=== PATIENT | female | born 1995 | race Caucasian/White ===

== ENCOUNTER 2019-10-20 09:17 | Inpatient (IN) | payer OTHER ==
[~2019-10-20] VITALS: Ht 152.4 cm; Wt 105.7 kg
[2019-10-20 10:31] VITALS: BP 110/68
--- NOTE | 2019-10-20 12:03 | NUR ---
Received consult for pt with gluten sensitivity, lactose intolerance. Pt is NPO on admit. Pt is aware of gluten free and dairy free menu options and reports good appetite.
--- NOTE | 2019-10-20 17:05 | NUR ---
FAXED REFERRAL TO [facility] RECEIVED CONFIRMATION SPOKE WITH JUAN IN INTAKE SHE NEEDS TO RUN INSURANCE AND WILL NOT KNOW IF THEY CAN ACCEPT. BUT TO SEND PT HOME WITH A STARTER DRESSING CHANGE SUPPLIES AND THEY WILL F/U WITH PT ONCE THEY KNOW IF INSURANCE IS IN NETWORK. IF PT DISCHARGES OVER WEEKEND FAX DC ORDERS/SUMMARY TO [phone] AND CALL [phone]. DP TO F/U WEDNESDAY AM
--- NOTE | 2019-10-20 17:11 | NUR ---
ASSESSMENT-PT LIVES IN A HOUSE BUT HER MOM LIVES ABOUT 1 MILE AWAY. PT WAS INDEPENDENT OF ADLS AND AMBULATION PRIOR TO ADMISSION. PT WAS WORKING AND DRIVING. DISCUSSED POSSIBLE NEED FOR HH SERVICES FOR DRESSING CHANGES. UNABLE TO CHECK BENEFITS FOR HH SERVICES AT THIS TIME. [facility] WILL REVIEW INFO & CHECK BENEFITS. PT/MOM WILL CHECK WITH TOMORROW TO SEE IF THEY REC. HH SERVICES FOR DRESSING CHANGES. RN INSTRUCTED TO DO TEACHING ON THE DRESSING CHANGE AND TO PROVIDE PT WITH A STARTER SUPPLY OF DRESSING SUPPLIES WHEN DISCHARGED. MOM AT BEDSIDE. FOLLOWING TO ASSIST WITH DC PLANNING.
[2019-10-20 19:15] VITALS: BP 99/61
[2019-10-20] MEDS ORDERED: ZYRTEC10 MG PO (20:47)
[2019-10-20] MEDS ORDERED: MUCINEX600 MG (20:48)
[2019-10-20] MEDS ORDERED: FLONASE 0.05%50 MCG NARES (20:49)
--- NOTE | 2019-10-21 02:11 | NUR ---
PT IS ALERT AND ORIENTED. PLEASANT AND COOPERATIVE. AFEBRILE. LEFT GROIN DRSG IS C/D. SCDS IN PLACE. PT HAS IV HYDRATION RUNNING. CONTINUES ON PRN WELL SCHEDULED PAIN MEDS WITH RELIEF. WILL CONTINUE WITH POC TILL EOS.
[2019-10-21 04:25] VITALS: BP 109/59
[2019-10-21 06:12] LABS: HEMATOCRIT 39.9 % (37.0-47.0); HEMOGLOBIN 13.2 gm/dL (12.0-15.0); MCH 30.2 pg (26.0-34.0); MCHC 33.1 g/dL (28.0-37.0); MCV 91.3 fL (80.0-100.0); RBC 4.36 mil/uL (4.20-5.00); RDW 12.7 % (10.5-14.5); WBC 10.9 thou/uL (4.0-11.0)
[2019-10-21 06:30] LABS: ALBUMIN 3.3 g/dL (3.4-5.0); CALCIUM 9.4 mg/dL (8.5-10.1); CREATININE 0.8 mg/dL (0.6-1.0); PHOSPHORUS 3.5 mg/dL (2.5-4.9); POTASSIUM 4.8 mmol/L (3.5-5.1)
[2019-10-21 08:20] VITALS: BP 112/73
[2019-10-21 17:06] VITALS: BP 114/51
[2019-10-21 21:30] VITALS: BP 110/67
[2019-10-22 04:00] VITALS: BP 96/58
--- NOTE | 2019-10-22 04:00 | NUR ---
ASSESSMENT COMPLETED. PT IS UP AD MAXIME IN ROOM. DRSG TO LEFT GROIN IS C/D/I. NO S/SX OF INFECTION AROUND THE GROIN SITE. AFEBRILE. REQUIRES IV PAIN MEDS FOR PAIN CONTROL.DENIES ANY NAUSEA OR VOMITING. PT CONCERNED ABOUT THE HIGH LEVEL OF PAIN SHE FEELS DURING DRSG CHANGE.EATING AND DRINKING OKAY.
[2019-10-22] MEDS ORDERED: OXYCODONE HCL 55 MG PO (06:12)
[2019-10-22 08:10] VITALS: BP 94/56
[2019-10-22 17:15] VITALS: BP 104/62
[2019-10-22 19:53] VITALS: BP 115/68
[2019-10-23 03:28] VITALS: BP 95/51
--- NOTE | 2019-10-23 04:21 | NUR ---
ASSUMED CARE OF PT @1900. PT ASSESSED AT START OF SHIFT WITH C/O OF UNCONTROLLABLE PAIN. PAIN MEDS GIVEN. DRESSING CHANGE ON LFT GROIN DONE THIS SHIFT BY NIGHT NURSE LIDOCAINE JELL APPLIED, PACKED AND OPTIFORM PLACED. PT WAS STILL IN SO MUCH PAIN. MOM AT BEDSIDE FOR THE NIGHT. PT WANTED XANAX FOR ANXIETY STATES TAKES AT HOME CALLED AND SPOKE WITH DR MARQUEZ. HE STATED TO ASK ABOUT PHARMACY. PT STATED DOESN'T HAVE MED. ISOLATION MAINTAINED. AND SCHEDULED PAIN MEDS GIVEN ROUND THE CLOCK. MOM AND PT WANTS TO TALK WITH AGRICULTURAL ENGINEERING TECHNICIAN TOMORROW FOR H/H SERVICES BEFORE D/C. WILL CONT WITH POC TILL EOS.
[2019-10-23 08:02] VITALS: BP 91/37
[2019-10-23] MEDS ORDERED: BACTRIM DS TAB1 EACH PO (14:07)
[2019-10-23] MEDS ORDERED: IBUPROFEN 200200 M1 PO (14:08)
[2019-10-23] MEDS ORDERED: ACETAMINOPHEN325 M1 PO (14:08)
[2019-10-23] MEDS ORDERED: COLACE 100 MG100 MG PO (14:09)
[2019-10-23] MEDS ORDERED: MIRALAX17 GM PO (14:09)
[2019-10-23] MEDS ORDERED: LIDOCAINE 2%2 %/5 GM TOP (14:39)
[2019-10-23 15:33] VITALS: BP 91/37
--- NOTE | 2019-10-23 15:34 | NUR ---
CARE TEAM INDICATED THAT PT IS MEDICALLY STABLE TO DC HOME THIS DAY WITH [facility] FOR WOUND CARE. PT NEEDS DAILY PACKING AND DRESSING CHANGES. CM MET WITH PT AND KEYLA AT BEDSIDE THIS DAY AND INDICATED THAT [facility] COULD DO DAILY TREATMENTS FOR A SHORT TIME BUT THAT THE EXPECTATION WOULD BE THAT THERE BE SOMEONE WHO IS TEACHABLE TO PROVIDE DRESSING CHANGES ONCE THEY AREN'T ABLE TO COME DAILY. PT TOLD DR. MARQUEZ THAT SHE HAS A FRIEND WHO WILL BE ABLE TO ASSIST. ORDERS FAXED. NO OTHER CM INTERVENTION INDICATED. CASE CLOSED.
[2019-10-23 17:35] VITALS: BP 112/60
--- NOTE | 2019-10-23 19:05 | NUR ---
ASSUMED CARE OF THE PT AT 0700. PT WOUND CHANGED WITH WET GAUZE AND BORDER FOAM. PAIN CONTROLLED BY PAIN MEDS, SEE EMAR. IV REMOVED AND PT DISCHARGED TO HOME WITH HH. DISCHARGE [facility]WK SIGNED AND PRESCRIPTIONS GIVEN TO PT
== END 2019-10-23 19:08 | disposition home or self-care (01) | DRG 603 ==
LOC: 4S 09:17
PROVIDERS: ADMIT Surgery
PROC: 0Y9D0ZZ Drainage of Left Upper Leg, Open Approach (ICD-10-PCS; principal; 2019-10-20)
DX: L02.416 Cutaneous abscess of left lower limb (principal); Z68.42 Body mass index [BMI] 45.0-49.9, adult; Z96.5 Presence of tooth-root and mandibular implants; E66.01 Morbid (severe) obesity due to excess calories; F12.90 Cannabis use, unspecified, uncomplicated; Z80.0 Family history of malignant neoplasm of digestive organs; Z87.442 Personal history of urinary calculi; Z88.5 Allergy status to narcotic agent; Z88.8 Allergy status to other drugs, medicaments and biological substances; Z80.42 Family history of malignant neoplasm of prostate; Z79.899 Other long term (current) drug therapy
CPT/HCPCS: 10102; 50010; 50101; 50386; 50403; 62110; 62900; 70005